=== PATIENT | female | born 1935 ===

== ENCOUNTER 2017-05-04 13:52 | Inpatient (IN) | payer MEDICARE, OTHER ==
[2017-05-04 13:53] VITALS: BMI 25.4
[2017-05-04 14:39] LABS: BASO # 0.1 K/uL (0.0-0.2); BASO % 0.7 % (0.0-2.0); EOS # 0.1 K/uL (0.0-0.7); EOS % 0.8 % (0.0-4.0); HEMATOCRIT 33.4 % (34.0-47.0); LYMPH # 1.3 K/uL (1.0-4.3); LYMPH % 8.7 % (20.0-40.0); MEAN CORPUSCULAR HEMOGLOBIN 29.6 pg (27.0-31.0); MEAN CORPUSCULAR HGB CONC 33.3 g/dL (33.0-37.0); MEAN PLATELET VOLUME 8.3 fL (7.2-11.7); MONO # 1.6 K/uL (0.0-0.8); MONO % 10.9 % (0.0-10.0); PLATELET COUNT 141 K/uL (130-400); RED CELL DISTRIBUTION WIDTH 14.5 % (11.5-14.5)
--- NOTE | 2017-05-04 14:39 | C.PDOC ---
History Of Present Illness 82 year old female, with a history of mitral valve replacement, long standing fecal and urinary incontinence, and mild dementia, was brought to the ED by daughter for evaluation of complaints patient is becoming progressively weaker, difficulty ambulating, and left leg swelling noted today. Patient has a past history of injury to the left ankle with occasional swelling, however, current swelling is more than usual. Patient's daughter states she has been drinking and eating fine but now must use a wheel chair to move around rooms in the home. Patient is poor historian but notes she "feels sick" but does not have specific complaints. She denies abdominal pain, respiratory distress, or fever. Time Seen by Provider: 05/04/17 14:07 Chief Complaint (Nursing): Weakness/Neurological Deficit History Per: Patient, Family (daughter ) History/Exam Limitations: clinical condition (mild dementia, patient poor historian ) Onset/Duration Of Symptoms: Hrs Current Symptoms Are (Timing): Still Present Fall Associated With With Symptoms: No Recent travel outside of the [place]: No Additional History Per: Prior Records Past Medical History Reviewed: Historical Data, Nursing Documentation, Vital Signs Vital Signs: Last Vital Signs Temp 98.2 F 05/04/17 14:04 Pulse 69 05/04/17 16:34 Resp 20 05/04/17 16:34 BP 130/65 05/04/17 16:34 Pulse Ox 95 05/04/17 16:38 - Medical History PMH: Atrial Fibrillation, COPD, HTN Surgical History: Pacemaker - [facility] Procedures REPLAC ANY TYPE PACE DEV W/ DUAL CHAMBER DEVICE (12/03/12) Family History: States: Unknown Family Hx - Social History Hx Alcohol Use: No Hx Substance Use: No Review Of Systems Constitutional: Positive for: Weakness (noted by daughter ), Other (difficulty ambulating ). Negative for: Fever Respiratory: Negative for: Cough, Shortness of Breath Gastrointestinal: Negative for: Abdominal Pain Skin: Positive for: Other (left leg swelling ) Physical Exam - Physical Exam Appears: Non-toxic, No Acute Distress, Other (Patient appears hydrated ) Skin: Warm, Dry, No Diaphoretic Head: Atraumatic, Normacephalic Eye(s): bilateral: Normal Inspection, PERRL, EOMI Oral Mucosa: Moist Neck: Supple Chest: No Deformity, No Tenderness Cardiovascular: Other (Pacemaker. Underlying Atrial fibrilation. ) Respiratory: Rales (Rales at the left base ), No Wheezing Gastrointestinal/Abdominal: Soft, No Tenderness, No Distention, No Guarding, No Rebound Extremity: Calf Tenderness (mild left calf tenderness ), Swelling (mild swelling of the left leg, from the knee down. ), Other (No color change or duskiness of extremities ) Pulses: Left Dorsalis Pedis: Normal, Right Dorsalis Pedis: Normal Neurological/Psych: No Oriented x3 (awake and alert ) ED Course And Treatment - Laboratory Results Result Diagrams: 05/04/17 14:33 05/04/17 14:33 Lab Interpretation: Abnormal (WBC 14.8 with left shift, Na 129, K 3.5, HCO3 20, D-dimer 1747, BNP 7940) ECG: Interpreted By Me ECG Rhythm: AV Paced ECG Interpretation: No Acute Changes O2 Sat by Pulse Oximetry: 95 (RA) Pulse Ox Interpretation: Normal - Radiology CXR: Interpreted by Me CXR Interpretation: Yes: Cardiomegaly, Other (vascular congestion) Progress Note: EKG, CXR, and blood work was ordered. Reevaluation Time: 15:48 Reassessment Condition: Unchanged - Physician Consult Information Time Consulting Physician Contacted: 15:49 Physician Contacted: Yair Benitez Outcome Of Conversation: Unable to contact Dr Benitez after multiple attempts. Case referred to Dr Leida Madsen telephone lineworker. He agrees to accept care. Disposition - Disposition Disposition: HOSPITALIZED Disposition Time: 18:19 Condition: STABLE - POA Present On Arrival: None - Clinical Impression Clinical Impression: CHF (congestive heart failure), Dementia, Left leg swelling - Scribe Statement The provider has reviewed the documentation as recorded by the Scribnorma Moyer All medical record entries made by the Scribnorma were at my direction and personally dictated by me. I have reviewed the chart and agree that the record accurately reflects my personal performance of the history, physical exam, medical decision making, and the department course for this patient. I have also personally directed, reviewed, and agree with the discharge instructions and disposition.
[2017-05-04 14:42] LABS: MEAN CELL VOLUME 89.1 fL (81.0-99.0); WHITE BLOOD COUNT 14.8 K/uL (4.8-10.8)
[2017-05-04 14:52] LABS: CHLORIDE 99 mmol/L (98-107)
[2017-05-04 14:53] LABS: POTASSIUM 3.5 mmol/L (3.6-5.2); SODIUM 129 mmol/L (132-148)
[2017-05-04 14:55] LABS: ALKALINE PHOSPHATASE 63 U/L (38-126); ALT/SGPT 39 U/L (9-52); AST/SGOT 30 U/L (14-36); BILIRUBIN,TOTAL 1.8 mg/dL (0.2-1.3); BLOOD UREA NITROGEN 11 mg/dL (7-17); CARBON DIOXIDE 20 mmol/L (22-30); GFR AFRICAN-AMERICAN > 60
[2017-05-04 14:56] LABS: CALCIUM 8.7 mg/dl (8.6-10.4); GLUCOSE,RANDOM 127 mg/dL (65-105)
[2017-05-04 15:17] LABS: NEUTROPHIL 78 % (50-75); TOTAL CELLS COUNTED 100
[2017-05-04 15:19] LABS: LARGE PLATELETS PRESENT
[2017-05-04 15:52] LABS: RBC URINE 3 /hpf (0-3); URINE BACTERIA RARE (<OCC); URINE BILIRUBIN NEGATIVE (NEGATIVE); URINE BLOOD 1+ (NEGATIVE); URINE COLOR Amber (YELLOW); URINE GLUCOSE (UA) NORMAL (Normal); URINE KETONE NEGATIVE (NEGATIVE); URINE LEUKOCYTE ESTERASE TRACE Leu/uL (Negative); URINE PROTEIN 1+ mg/dL (NEGATIVE); WBC URINE 5 /hpf (0-5)
--- NOTE | 2017-05-04 16:32 | RAD ---
PROCEDURE: CHEST RADIOGRAPH, 1 VIEW HISTORY: SOB COMPARISON: Comparison chest dated 05/27/2014 FINDINGS: LUNGS: Poor inspiration with low lung volumes and crowded bronchovascular markings and mild bibasilar atelectasis. Central pulmonary vasculature is also slightly increased which may be due to poor inspiration as well. . Clinical correlation recommended to exclude the possibility of underlying mild chronic compensated pulmonary edema/CHF PLEURA: No pneumothorax or pleural fluid seen. CARDIOVASCULAR: Sternotomy wires and by a Bela pacemaker unchanged. Heart appears mildly enlarged. OSSEOUS STRUCTURES: No significant abnormalities. VISUALIZED UPPER ABDOMEN: Normal. OTHER FINDINGS: None. IMPRESSION: Poor inspiration with low lung volumes and crowded bronchovascular markings and mild bibasilar atelectasis. Central pulmonary vasculature is also slightly increased which may be due to poor inspiration as well. . Clinical correlation recommended to exclude the possibility of underlying mild chronic compensated pulmonary edema/CHF
[2017-05-04 21:03] LABS: INR 2.8
[2017-05-05 08:49] LABS: BASO # 0.1 K/uL (0.0-0.2); BASO % 0.7 % (0.0-2.0); EOS # 0.5 K/uL (0.0-0.7); EOS % 3.4 % (0.0-4.0); HEMATOCRIT 33.4 % (34.0-47.0); LYMPH % 14.6 % (20.0-40.0); MEAN CELL VOLUME 88.5 fL (81.0-99.0); MEAN CORPUSCULAR HEMOGLOBIN 29.7 pg (27.0-31.0); MEAN CORPUSCULAR HGB CONC 33.5 g/dL (33.0-37.0); MEAN PLATELET VOLUME 8.3 fL (7.2-11.7); MONO # 1.7 K/uL (0.0-0.8); MONO % 12.3 % (0.0-10.0); RED CELL DISTRIBUTION WIDTH 14.2 % (11.5-14.5); WHITE BLOOD COUNT 13.4 K/uL (4.8-10.8)
[2017-05-05] MEDS: Metoprolol Succinate 50 mg XL Tab PO SCH (09:21)
[2017-05-05 09:29] LABS: CHLORIDE 99 mmol/L (98-107); SODIUM 130 mmol/L (132-148)
[2017-05-05 09:30] LABS: POTASSIUM 3.6 mmol/L (3.6-5.2)
[2017-05-05 09:31] LABS: AST/SGOT 35 U/L (14-36); BILIRUBIN,TOTAL 1.9 mg/dL (0.2-1.3); CARBON DIOXIDE 20 mmol/L (22-30); GFR AFRICAN-AMERICAN > 60
[2017-05-05 09:32] LABS: ALKALINE PHOSPHATASE 70 U/L (38-126); ALT/SGPT 38 U/L (9-52); BLOOD UREA NITROGEN 12 mg/dL (7-17); CALCIUM 8.5 mg/dl (8.6-10.4); GLUCOSE,RANDOM 101 mg/dL (65-105)
[2017-05-05] MEDS: Fluticasone Nasal 50 mcg/Spray NAS SCH (10:09)
--- NOTE | 2017-05-05 22:30 | CP.PCM.HP ---
History of Present Illness - History of Present Illness History of Present Illness: Chief complaint: Leg swelling weakness History of present illness: 82, female, history of mitral valve replacement, aortic valvular ring placement , atrial fibrillation, and anticoagulation with Coumadin, history of dementia, hypertension, allergic rhinitis. Family was concerned about her overall situation recently, she was getting more weak, more tired, increasing leg swelling, not eating well, slowly her condition is getting worse. Patient was not able to walk, and becoming more bedridden for the 2 days duration. Patient was walking to my office. She was also having minimal cough. She was not eating well, poor appetite motor, constipation present Patient did not have any chest pain. She is able to talk communicate with family members. Past medical history is notable Allergic to penicillin Past history: Nonsmoker nonalcoholic Family history: Noncontributory. Surgical history includes pacemaker, aortic valvular ring replacement, mitral valve replacement. Hypertension, diabetes noted in the family Medications reviewed from the chart Review of systems: 10 point system review was done, the cluster in his easy fatigability noted. Leg swelling present. Mild SOB noted. Anasarca noted On examination: Vital signs: Temperature 98.2 pulse is 69 respiration 20 blood pressure 130/65 saturation 93% . Chest good air entry bilaterally, expiratory wheezing are as not regular Nontender Abdomen Edema Generalized Bilaterally in the Legs Noted Labs Reviewed Elevated ProBNP Noted. Chest X-Ray Showing Evidence of Increasing Congestive CHANGES Assessment and Recommendation: 82 Female with History of Mitral Valve Replacement, Atrial fibrillation, pacemaker, an adequate ablation. Patient now admitted with a possible decompensated heart failure. Most likely fluid overload state. Hyponatremia. Likely secondary to anasarca. Patient's overall situation is somewhat critical. Fifi echocardiogram, cardiology evaluation, intravenous Lasix. Currently on Coumadin. Monitor the anticoagulation. DVT GI prophylaxis and will follow the patient Present on Admission - Present on Admission Any Indicators Present on Admission: No History of DVT/PE: No History of Uncontrolled Diabetes: No Urinary Catheter: No Decubitus Ulcer Present: No Past Patient History - Past Medical History & Family History Past Medical History?: Yes - Past Social History Smoking Status: Never Smoked - CARDIAC Hx Atrial Fibrillation: Yes Hx Hypertension: Yes Hx Pacemaker: Yes - PULMONARY Hx Chronic Obstructive Pulmonary Disease (COPD): Yes - NEUROLOGICAL HX Cerebrovascular Accident: Yes Hx Dementia: Yes Hx Transient Ischemic Attacks (TIA): Yes - HEENT Hx Glaucoma: Yes Other/Comment: post nasal drip - ENDOCRINE/METABOLIC Hx Diabetes Mellitus Type 2: Yes (borderline) - MUSCULOSKELETAL/RHEUMATOLOGICAL Hx Falls: No Hx Osteoarthritis: Yes (of lower back) - PSYCHIATRIC Hx Substance Use: No - SURGICAL HISTORY Other/Comment: mitral valve replacement -2005. annuloplasty ring-2005. pacemaker-2005. battery replacement for pacemaker-2012 - ANESTHESIA Hx Anesthesia: Yes Hx Anesthesia Reactions: No Hx Malignant Hyperthermia: No Has any member of the family had a problem w/ anesthesia?: No Meds Allergies/Adverse Reactions: Allergies Allergy/AdvReac Type Severity Reaction Status Date / Time Penicillins Allergy Verified 05/04/17 14:14 Results - Vital Signs Recent Vital Signs: Last Vital Signs Temp 97.5 F L 05/05/17 20:00 Pulse 68 05/05/17 20:00 Resp 18 05/05/17 20:00 BP 128/73 05/05/17 20:00 Pulse Ox 98 05/05/17 16:00 - Labs Result Diagrams: 05/05/17 08:39 05/05/17 08:39 Labs: Laboratory Results - last 24 hr 05/05/17 05/05/17 08:39 08:39 WBC 13.4 H RBC 3.77 L Hgb 11.2 Hct 33.4 L MCV 88.5 MCH 29.7 MCHC 33.5 RDW 14.2 Plt Count 156 MPV 8.3 Neut % (Auto) 69.0 Lymph % (Auto) 14.6 L [place] % (Auto) 12.3 H Eos % (Auto) 3.4 Baso % (Auto) 0.7 Neut # 9.3 H Lymph # 2.0 [place] # 1.7 H Eos # 0.5 Baso # 0.1 Sodium 130 L Potassium 3.6 Chloride 99 Carbon Dioxide 20 L Anion Gap 15 BUN 12 Creatinine 0.6 L Est GFR ( Amer) > 60 Est GFR (Non-Af Amer) > 60 Random Glucose 101 Calcium 8.5 L Total Bilirubin 1.9 H AST 35 ALT 38 Alkaline Phosphatase 70 Total Protein 7.0 Albumin 3.6 Globulin 3.5 Albumin/Globulin Ratio 1.0
--- NOTE | 2017-05-05 23:55 | CARD ---
APPROVED REPORT EXAM: Two-dimensional and M-mode echocardiogram with Doppler and color Doppler. Other Information Quality : Technically LimitedRhythm : NSR INDICATION Congestive Heart Failure Surgery/Intervention Status/Post Mitral Valve Replacement: Mechanical M-Mode DIMENSIONS RVDd1.76 (2.1-3.2cm)Left Atrium (MM)4.39 (2.5-4.0cm) IVSd0.91 (0.7-1.1cm)Aortic Root2.73 (2.2-3.7cm) LVDd3.84 (4.0-5.6cm)Aortic Cusp Exc.1.11 (1.5-2.0cm) PWd1.20 (0.7-1.1cm)FS (%) 15 % LVDs3.25 (2.0-3.8cm)LVEF (%)33 (>50%) Aortic Valve AoV Peak Rzxnngcw806.4cm/Jimmy Peak GR.11mmHgAI P 1/2 [id number] Mitral Valve MV E Wvidofti261.8cm/sMV E Peak Gr.12mmHgMV A Echnqbdi18.2cm/s MV E Mean Gr.5mmHgMV FOB436txN/A ratio2.2 MVA (PHT)2.06cm2 TDI E/Lateral E'0.0E/Medial E'0.0 Tricuspid Valve TR Peak Akpfydpi061ut/sTR Peak Gr.[id number] LEFT VENTRICLE The left ventricle is normal size. There is normal left ventricular wall thickness. Left ventricle systolic function is severely impaired. The Ejection Fraction is 30-35%. There is severe global hypokinesis of the left ventricle. The left ventricular diastolic function is normal. RIGHT VENTRICLE The right ventricle is normal size. There is normal right ventricular wall thickness. Systolic function is severely reduced. There is a pacemaker lead in the right ventricle. ATRIA The left atrium is mildly dilated. The right atrium size is normal. The interatrial septum is intact with no evidence for an atrial septal defect. AORTIC VALVE The aortic valve is normal in structure. There is mild to moderate aortic regurgitation. There is no aortic valvular stenosis. MITRAL VALVE Mitral annular calcification is moderate. There is moderate mitral valve stenosis in the prosthetic valve. Calculated mitral valve area is 2.06 cm2 with maximum pressure gradient of 12mmHg and mean pressure gradient of 5mmHg. Mitral regurgitation is mild. There is a mechanical mitral valve. TRICUSPID VALVE The tricuspid valve is normal in structure. There is mild to moderate tricuspid regurgitation. Right ventricular systolic pressure is estimated at 50-60 mmHg. There is moderate-severe pulmonary hypertension. PULMONIC VALVE The pulmonic valve is not well visualized. There is no pulmonic valvular regurgitation. GREAT VESSELS The aortic root is normal in size. PERICARDIAL EFFUSION There is no significant pericardial effusion. <Conclusion> Left ventricle systolic function is severely impaired. The Ejection Fraction is 30-35%. Diastolic dysfunction. There is mild to moderate aortic regurgitation. Mitral regurgitation is mild. There is moderate mitral valve stenosis in the prosthetic valve. Mitral regurgitation is mild. There is mild to moderate tricuspid regurgitation. There is moderate-severe pulmonary hypertension. There is no pulmonic valvular regurgitation.
[2017-05-06] MEDS: Metoprolol Succinate 50 mg XL Tab PO SCH (09:41)
[2017-05-06] MEDS: Fluticasone Nasal 50 mcg/Spray NAS SCH (09:41)
--- NOTE | 2017-05-06 17:43 | CP.PCM.PN ---
Subjective - Date & Time of Evaluation Date of Evaluation: 05/06/17 Time of Evaluation: 17:42 - Subjective Subjective: Patient's the leg swelling is improving markedly. She is feeling much better, breathing better. I spoke to the patient's daughter today. I also spoke to the registered nurse supervisor today. Vital signs reviewed Chest good air entry regular heart sound. Patient is comfortable. Added Seroquel 50 mg daily. Medications reviewed Coumadin 5 mg daily. INR is therapeutic. Will get cardiology evaluation. Patient echocardiogram showing evidence of ejection fraction 35%, most likely patient has a systolic heart failure at this time, valvular disease. We'll continue to monitor the patient. DVT GI prophylaxis. Follow-up the patient Objective - Vital Signs/Intake and Output Vital Signs (last 24 hours): Temp Pulse Resp BP Pulse Ox 97.6 F 73 19 149/61 97 05/06/17 04:00 05/06/17 15:54 05/06/17 15:54 05/06/17 15:54 05/06/17 15:54 Intake and Output: 05/06/17 05/06/17 06:59 18:59 Intake Total 50 Output Total 700 900 Balance -650 -900 - Medications Medications: Current Medications Aspirin (Aspirin Chewable) 81 mg PO DAILY [facility] Last Admin: 05/06/17 09:41 Dose: 81 mg Enalapril Maleate (Vasotec) 2.5 mg PO DAILY [facility] Last Admin: 05/06/17 09:37 Dose: 2.5 mg Fluticasone Propionate (Flonase) 2 spr DAYANA DAILY [facility] Last Admin: 05/06/17 09:41 Dose: 2 spr Furosemide (Lasix) 20 mg IVP DAILY [facility] Last Admin: 05/06/17 09:41 Dose: 20 mg Metoprolol Succinate (Toprol Xl) 50 mg PO DAILY [facility] Last Admin: 05/06/17 09:41 Dose: 50 mg Quetiapine Fumarate (Seroquel) 25 mg PO HS [facility] Last Admin: 05/05/17 23:15 Dose: 25 mg Timolol Maleate (Timoptic 0.5% Oph Soln) 0 drop OU HS [facility] Last Admin: 05/05/17 22:03 Dose: 1 drop Warfarin Sodium (Coumadin) 5 mg PO DAILY@1800 [facility] Stop: 05/09/17 18:00 Last Admin: 05/06/17 17:35 Dose: 5 mg - Labs Labs: 05/05/17 08:39 05/05/17 08:39 PT 22.4 SECONDS (9.7-12.2) H D 05/06/17 06:10 INR 2.0 D 05/06/17 06:10 APTT 34 SECONDS (21-34) 05/06/17 06:10
[2017-05-07 06:30] LABS: INR 2.1
[2017-05-07 06:34] LABS: BASO # 0.1 K/uL (0.0-0.2); BASO % 0.9 % (0.0-2.0); EOS # 0.4 K/uL (0.0-0.7); EOS % 4.8 % (0.0-4.0); HEMATOCRIT 35.6 % (34.0-47.0); LYMPH # 1.4 K/uL (1.0-4.3); LYMPH % 16.6 % (20.0-40.0); MEAN CELL VOLUME 88.9 fL (81.0-99.0); MEAN CORPUSCULAR HEMOGLOBIN 30.3 pg (27.0-31.0); MEAN CORPUSCULAR HGB CONC 34.1 g/dL (33.0-37.0); MEAN PLATELET VOLUME 8.9 fL (7.2-11.7); MONO # 1.2 K/uL (0.0-0.8); MONO % 13.9 % (0.0-10.0); NRBC % 0.1 % (0.0-2.0); RED CELL DISTRIBUTION WIDTH 14.5 % (11.5-14.5); WHITE BLOOD COUNT 8.7 K/uL (4.8-10.8)
[2017-05-07 06:46] LABS: CHLORIDE 100 mmol/L (98-107); POTASSIUM 3.4 mmol/L (3.6-5.2); SODIUM 136 mmol/L (132-148)
[2017-05-07 06:48] LABS: AST/SGOT 55 U/L (14-36); BILIRUBIN,TOTAL 1.2 mg/dL (0.2-1.3); CARBON DIOXIDE 25 mmol/L (22-30); GFR AFRICAN-AMERICAN > 60
[2017-05-07 06:49] LABS: ALB/GLOB RATIO 0.8 (1.0-2.1); ALKALINE PHOSPHATASE 77 U/L (38-126); ALT/SGPT 68 U/L (9-52); BLOOD UREA NITROGEN 16 mg/dL (7-17); CALCIUM 8.9 mg/dl (8.6-10.4); GLUCOSE,RANDOM 96 mg/dL (65-105); TOTAL PROTEIN 7.7 g/dL (6.3-8.3)
[2017-05-07] MEDS: Metoprolol Succinate 50 mg XL Tab PO SCH ×2 (09:14→15:34)
[2017-05-07] MEDS: Fluticasone Nasal 50 mcg/Spray NAS SCH (09:16)
--- NOTE | 2017-05-08 01:45 | CP.PCM.PN ---
Subjective - Date & Time of Evaluation Date of Evaluation: 05/07/17 Time of Evaluation: 20:00 - Subjective Subjective: patient is stable. Improving. Leg swelling better. Spoke to the family. Awaiting for cardiology clearance. She will be transferred to [facility] Objective - Vital Signs/Intake and Output Vital Signs (last 24 hours): Temp Pulse Resp BP Pulse Ox 97.4 F L 87 20 181/95 H 97 05/07/17 17:32 05/07/17 17:32 05/07/17 17:32 05/07/17 17:32 05/07/17 17:32 Intake and Output: 05/07/17 05/08/17 18:59 06:59 Intake Total 240 Balance 240 - Medications Medications: Current Medications Aspirin (Aspirin Chewable) 81 mg PO DAILY [facility] Last Admin: 05/07/17 09:12 Dose: 81 mg Enalapril Maleate (Vasotec) 5 mg PO DAILY [facility] Fluticasone Propionate (Flonase) 2 spr DAYANA DAILY [facility] Last Admin: 05/07/17 09:16 Dose: 2 spr Furosemide (Lasix) 40 mg PO DAILY [facility] Metoprolol Succinate (Toprol Xl) 50 mg PO DAILY [facility] Last Admin: 05/07/17 15:34 Dose: 50 mg Quetiapine Fumarate (Seroquel) 25 mg PO HS [facility] Last Admin: 05/07/17 22:39 Dose: 25 mg Timolol [facility] 0 drop OU HS [facility] Last Admin: 05/07/17 22:39 Dose: 1 drop Warfarin Sodium (Coumadin) 5 mg PO DAILY@1800 [facility] Stop: 05/09/17 18:00 Last Admin: 05/07/17 17:07 Dose: 5 mg - Labs Labs: 05/07/17 06:20 05/07/17 06:17 PT 23.6 SECONDS (9.7-12.2) H 05/07/17 06:16 INR 2.1 05/07/17 06:16 APTT 29 SECONDS (21-34) D 05/07/17 06:16
[2017-05-08 07:33] LABS: BASO % 0.6 % (0.0-2.0); EOS # 0.3 K/uL (0.0-0.7); EOS % 3.5 % (0.0-4.0); HEMATOCRIT 38.3 % (34.0-47.0); LYMPH # 1.4 K/uL (1.0-4.3); LYMPH % 17.7 % (20.0-40.0); MEAN CELL VOLUME 87.9 fL (81.0-99.0); MEAN CORPUSCULAR HEMOGLOBIN 30.3 pg (27.0-31.0); MEAN CORPUSCULAR HGB CONC 34.4 g/dL (33.0-37.0); MEAN PLATELET VOLUME 8.8 fL (7.2-11.7); MONO # 1.1 K/uL (0.0-0.8); MONO % 13.8 % (0.0-10.0); WHITE BLOOD COUNT 7.6 K/uL (4.8-10.8)
[2017-05-08 07:41] LABS: INR 2.1
[2017-05-08 08:33] LABS: CHLORIDE 101 mmol/L (98-107); SODIUM 135 mmol/L (132-148)
[2017-05-08 08:34] LABS: POTASSIUM 3.5 mmol/L (3.6-5.2)
[2017-05-08 08:36] LABS: ALB/GLOB RATIO 0.9 (1.0-2.1); ALKALINE PHOSPHATASE 89 U/L (38-126); ALT/SGPT 56 U/L (9-52); AST/SGOT 48 U/L (14-36); BILIRUBIN,TOTAL 1.2 mg/dL (0.2-1.3); BLOOD UREA NITROGEN 14 mg/dL (7-17); CARBON DIOXIDE 23 mmol/L (22-30); GFR AFRICAN-AMERICAN > 60
[2017-05-08 08:37] LABS: CALCIUM 8.8 mg/dl (8.6-10.4); GLUCOSE,RANDOM 107 mg/dL (65-105)
--- NOTE | 2017-05-08 08:52 | PCM.HF ---
Heart Failure Core Measure - Heart Failure Ejection Fraction: Less Than 40 % MARCOS Inhibitor Prescribed: Yes Beta-Beulah Prescribed: Metoprolol Succinate Angiotensin II Receptor Beulah Prescribed: No Contraindication/Reason for not providing: on marcos AnticoagulationTherapy for Atrial Fibrillation/Atrialflutter: Yes Aldosterone Antagonist Prescribed: No Contraindication/Reason for not providing: NOT REC BY CARDIO; + PACEMAKER Hydralazine Nitrate Prescribed: No Contraindication/Reason for not providing: NOT REC BY CARDIO; + PACEMAKER Implantable Cardioverter Defibrillator Therapy: Yes Contraindication/Reason for not providing: + PACEMAKER Cardiac Resynchronization Therapy Prescribed: No Contraindication/Reason for not providing: HAS PACEMAKER - Follow up Will be discharged to: [facility]) Follow Up Date (must be within 7 days from discharge): 05/12/17 Follow Up Time: 09:00
[2017-05-08] MEDS: Fluticasone Nasal 50 mcg/Spray NAS SCH (09:57)
[2017-05-08] MEDS: Metoprolol Succinate 50 mg XL Tab PO SCH (09:58)
[2017-05-09 01:26] VITALS: O2SAT 97
--- NOTE | 2017-05-09 02:54 | CON ---
DATE: CARDIOLOGY CONSULTATION HISTORY OF PRESENT ILLNESS: An 82-year-old female, was brought in with a history of congestive heart failure. Chart is reviewed. The patient is known to me from previous admissions and office visits. The patient apparently has a mitral valve replacement done more than 10 years ago, bioprosthetic valve, had a tricuspid valve ring placed in. She also has a chronic atrial fibrillation. She was in her usual state of health, being maintained on diuretics, Vasotec 5 mg and metoprolol. She also has a DDD pacemaker, which is being followed up at [facility]. PERSONAL HISTORY: Does not smoke, does not drink. ALLERGIES: ALLERGIC TO PENICILLIN. PAST MEDICAL HISTORY: History of pacemaker, tricuspid valve ring, and a mitral valve replacement, bioprosthetic. FAMILY HISTORY: Positive for hypertension. REVIEW OF SYSTEMS: Generalized weakness is noted. Walks on with a walker, but dyspnea on exertion, increasing ankle edema. Sleeps on 2 to 3 pillows. No abdominal pain. No hematemesis. No melena. No visual disturbances. History of arthritis involving the knees. History of depression. PHYSICAL EXAMINATION: GENERAL: Shows elderly female, who is conscious, alert, chronically sick looking and somewhat cachectic, but in no acute distress. VITAL SIGNS: She is 5.4 feet, weighs 131 pounds, blood pressure is 130/60; heart rate of 70 and regular and paced rhythm on the EKG and telemetry, and respiratory rate of 20. HEENT: Head is normocephalic. EYES: No pallor, no icterus. NECK: Supple. MOUTH: Absence of all teeth. LUNGS: Decreased air entry at the bases. CARDIAC: Heart sounds are distant, but no definite gallops, 2 to 3/6 midsystolic murmur in mitral area. ABDOMEN: Soft and nontender. EXTREMITIES: No cyanosis, clubbing, or edema. Distal pulses are 1+. LABORATORY DATA: Her hemoglobin is 13.2, potassium is 3.5, BUN is 14, creatinine is 0.6. INR is 2.1. Chest x-ray had shown congestive heart failure. Echocardiogram done repeat showed LVEF about 35%. ASSESSMENT: An 82-year-old female with a history of bioprosthetic mitral valve in the past, history of tricuspid valve ring annuloplasty, moderate degree of pulmonary hypertension with pulmonary artery systolic pressure of 50 mmHg and left ventricular systolic dysfunction, status post permanent pacemaker. PLAN: At this point just to continue with the diuretics and maintain INR around 2 to 2.5. The patient is already on Vasotec and may change from metoprolol to Coreg. She does not need any invasive cardiac workup based on her generalized condition and not a candidate for repeat intervention. I thank you kindly and we will follow as needed. Bull Bishop MD
[2017-05-09 08:52] VITALS: PULSE 102; RESP 18; TEMP 98.4
[2017-05-09 10:28] VITALS: BP 157/85
[2017-05-09] MEDS: Fluticasone Nasal 50 mcg/Spray NAS SCH (10:28)
--- NOTE | 2017-05-09 12:29 | CP.PCM.PN ---
Subjective - Date & Time of Evaluation Date of Evaluation: 05/09/17 Time of Evaluation: 12:27 - Subjective Subjective: feels ok.laying flat in bed. Objective - Vital Signs/Intake and Output Vital Signs (last 24 hours): Temp Pulse Resp BP Pulse Ox 98.4 F 102 H 18 157/85 H 97 05/09/17 08:50 05/09/17 08:50 05/09/17 08:50 05/09/17 10:28 05/09/17 08:50 Intake and Output: 05/09/17 05/09/17 06:59 18:59 Intake Total 240 Output Total 1 Balance 239 - Medications Medications: Current Medications Aspirin (Aspirin Chewable) 81 mg PO DAILY [facility] Last Admin: 05/09/17 10:27 Dose: 81 mg Carvedilol (Coreg) 6.25 mg PO BID [facility] Last Admin: 05/09/17 10:27 Dose: 6.25 mg Enalapril Maleate (Vasotec) 5 mg PO DAILY [facility] Last Admin: 05/09/17 10:27 Dose: 5 mg Fluticasone Propionate (Flonase) 2 spr DAYANA DAILY [facility] Last Admin: 05/09/17 10:28 Dose: 2 spr Furosemide (Lasix) 40 mg PO DAILY [facility] Last Admin: 05/09/17 10:28 Dose: 40 mg Quetiapine Fumarate (Seroquel) 25 mg PO HS [facility] Last Admin: 05/08/17 22:39 Dose: 25 mg Timolol Maleate (Timoptic 0.5% Ophth Soln) 0 drop OU HS [facility] Last Admin: 05/08/17 22:38 Dose: 1 drop Warfarin Sodium (Coumadin) 5 mg PO DAILY@1800 [facility] Stop: 05/09/17 18:00 Last Admin: 05/08/17 17:18 Dose: 5 mg - Labs Labs: 05/08/17 07:16 05/08/17 07:16 PT 24.2 SECONDS (9.7-12.2) H 05/08/17 07:16 INR 2.1 05/08/17 07:16 APTT 35 SECONDS (21-34) H D 05/08/17 07:16 - Constitutional Appears: No Acute Distress, Chronically Ill - Head Exam Head Exam: NORMOCEPHALIC - ENT Exam ENT Exam: Mucous Membranes Moist - Respiratory Exam Respiratory Exam: Clear to Ausculation Bilateral - Cardiovascular Exam Cardiovascular Exam: Irregular Rhythm, Murmur - GI/Abdominal Exam GI & Abdominal Exam: Soft - Extremities Exam Extremities Exam: absent: Pedal Edema - Neurological Exam Neurological Exam: Alert Assessment and Plan - Assessment and Plan (Free Text) Assessment: chf is resolved. on coreg.ct lasix,vasotec.
--- NOTE | 2017-05-09 13:49 | CP.PCM.PN ---
Subjective - Date & Time of Evaluation Date of Evaluation: 05/09/17 Time of Evaluation: 13:46 - Subjective Subjective: PT SEEN; CLEARED FOR D/C. HAS NO CURRENT COMPLAINTS. CLEARED BY DR. Heather REGALADO; PERFORATOR OPERATOR DISCUSSED WITH HIM AND PT TO CONTINUE SAME MEDICATIONS FOR NOW INCLUDING METOPROLOL. NO FURTHER CARDIAC WORKUP PER FABRICIO DEAL. PT TO GO TO [facility] AND WILL BE UNDER THE SERVICE OF DR. LOYA AT [facility]. PT INFO PROVIDED TO . NO FURTHER ORDERS. SW TO ARRANGE TRANSPORTATION TO [facility]. Objective - Vital Signs/Intake and Output Vital Signs (last 24 hours): Temp Pulse Resp BP Pulse Ox 98.4 F 102 H 18 157/85 H 97 05/09/17 08:50 05/09/17 08:50 05/09/17 08:50 05/09/17 10:28 05/09/17 08:50 Intake and Output: 05/09/17 05/09/17 06:59 18:59 Intake Total 240 Output Total 1 Balance 239 - Medications Medications: Current Medications Aspirin (Aspirin Chewable) 81 mg PO DAILY [facility] Last Admin: 05/09/17 10:27 Dose: 81 mg Carvedilol (Coreg) 6.25 mg PO BID [facility] Last Admin: 05/09/17 10:27 Dose: 6.25 mg Enalapril Maleate (Vasotec) 5 mg PO DAILY [facility] Last Admin: 05/09/17 10:27 Dose: 5 mg Fluticasone Propionate (Flonase) 2 spr DAYANA DAILY [facility] Last Admin: 05/09/17 10:28 Dose: 2 spr Furosemide (Lasix) 40 mg PO DAILY [facility] Last Admin: 05/09/17 10:28 Dose: 40 mg Quetiapine Fumarate (Seroquel) 25 mg PO HS [facility] Last Admin: 05/08/17 22:39 Dose: 25 mg Timolol Maleate (Timoptic 0.5% Oph Soln) 0 drop OU HS [facility] Last Admin: 05/08/17 22:38 Dose: 1 drop Warfarin Sodium (Coumadin) 5 mg PO DAILY@1800 [facility] Stop: 05/09/17 18:00 Last Admin: 05/08/17 17:18 Dose: 5 mg - Labs Labs: 05/08/17 07:16 05/08/17 07:16 PT 24.2 SECONDS (9.7-12.2) H 05/08/17 07:16 INR 2.1 05/08/17 07:16 APTT 35 SECONDS (21-34) H D 05/08/17 07:16
--- NOTE | 2017-05-09 21:56 | CARD ---
APPROVED REPORT EKG Measurement Heart [id number] RI 196P [id number] <Conclusion> AV dual-paced rhythm Abnormal ECG
--- NOTE | 2017-06-04 22:27 | CP.PCM.DIS ---
Provider - Provider Date of Admission: 05/04/17 18:20 Attending physician: Yair Benitez MD Time Spent in preparation of Discharge (in minutes): 45 Hospital Course - Lab Results Lab Results: Micro Results 05/07/17 19:00 Nose MRSA Culture - Final MRSA NOT DETECTED 05/04/17 22:19 Nose MRSA Culture (Admit) - Final MRSA NOT DETECTED 05/04/17 15:48 Urine Urine Culture - Final No Growth (<1,000 CFU/ML) Most Recent Lab Values WBC 7.6 K/uL (4.8-10.8) 05/08/17 07:16 RBC 4.36 Mil/uL (3.80-5.20) 05/08/17 07:16 Hgb 13.2 g/dL (11.0-16.0) 05/08/17 07:16 Hct 38.3 % (34.0-47.0) 05/08/17 07:16 MCV 87.9 fL (81.0-99.0) 05/08/17 07:16 MCH 30.3 pg (27.0-31.0) 05/08/17 07:16 MCHC 34.4 g/dL (33.0-37.0) 05/08/17 07:16 RDW 14.0 % (11.5-14.5) 05/08/17 07:16 Plt Count 210 K/uL (130-400) 05/08/17 07:16 MPV 8.8 fL (7.2-11.7) 05/08/17 07:16 Neut % (Auto) 64.4 % (50.0-75.0) 05/08/17 07:16 Lymph % (Auto) 17.7 % (20.0-40.0) L 05/08/17 07:16 Lassen % (Auto) 13.8 % (0.0-10.0) H 05/08/17 07:16 Eos % (Auto) 3.5 % (0.0-4.0) 05/08/17 07:16 Baso % (Auto) 0.6 % (0.0-2.0) 05/08/17 07:16 Neut # 4.9 K/uL (1.8-7.0) 05/08/17 07:16 Lymph # 1.4 K/uL (1.0-4.3) 05/08/17 07:16 Lassen # 1.1 K/uL (0.0-0.8) H 05/08/17 07:16 Eos # 0.3 K/uL (0.0-0.7) 05/08/17 07:16 Baso # 0.0 K/uL (0.0-0.2) 05/08/17 07:16 Neutrophils % (Manual) 78 % (50-75) H 05/04/17 14:33 Band Neutrophils % 1 % (0-2) 05/04/17 14:33 Lymphocytes % (Manual) 10 % (20-40) L 05/04/17 14:33 Monocytes % (Manual) 11 % (0-10) H 05/04/17 14:33 Platelet Estimate Normal (NORMAL) 05/04/17 14:33 Large Platelets Present 05/04/17 14:33 Polychromasia Slight 05/04/17 14:33 Hypochromasia (manual) Slight 05/04/17 14:33 Anisocytosis (manual) Slight 05/04/17 14:33 PT 24.2 SECONDS (9.7-12.2) H 05/08/17 07:16 INR 2.1 05/08/17 07:16 APTT 35 SECONDS (21-34) H D 05/08/17 07:16 D-Dimer, Quantitative 1747 ng/mlDDU (0-243) H 05/04/17 14:33 Sodium 135 mmol/L (132-148) 05/08/17 07:16 Potassium 3.5 mmol/L (3.6-5.2) L 05/08/17 07:16 Chloride 101 mmol/L (98-107) 05/08/17 07:16 Carbon Dioxide 23 mmol/L (22-30) 05/08/17 07:16 Anion Gap 14 (10-20) 05/08/17 07:16 BUN 14 mg/dL (7-17) 05/08/17 07:16 Creatinine 0.6 mg/dL (0.7-1.2) L 05/08/17 07:16 Est GFR ( Amer) > 60 05/08/17 07:16 Est GFR (Non-Af Amer) > 60 05/08/17 07:16 Random Glucose 107 mg/dL (65-105) H 05/08/17 07:16 Calcium 8.8 mg/dl (8.6-10.4) 05/08/17 07:16 Total Bilirubin 1.2 mg/dL (0.2-1.3) 05/08/17 07:16 AST 48 U/L (14-36) H 05/08/17 07:16 ALT 56 U/L (9-52) H 05/08/17 07:16 Alkaline Phosphatase 89 U/L (38-126) 05/08/17 07:16 Troponin I 0.1160 ng/mL (0.00-0.120) 05/04/17 14:33 NT-Pro-B Natriuret Pep 7940 pg/mL (0-900) H 05/04/17 14:33 Total Protein 7.0 g/dL (6.3-8.3) 05/08/17 07:16 Albumin 3.4 g/dL (3.5-5.0) L 05/08/17 07:16 Globulin 3.6 gm/dL (2.2-3.9) 05/08/17 07:16 Albumin/Globulin Ratio 0.9 (1.0-2.1) L 05/08/17 07:16 Urine Color Heidi (YELLOW) 05/04/17 15:37 Urine Clarity Clear (Clear) 05/04/17 15:37 Urine pH 5.0 (5.0-8.0) 05/04/17 15:37 Ur Specific Pender 1.020 (1.003-1.030) 05/04/17 15:37 Urine Protein 1+ mg/dL (NEGATIVE) H 05/04/17 15:37 Urine Glucose (UA) Normal mg/dL (Normal) 05/04/17 15:37 Urine Ketones Negative mg/dL (NEGATIVE) 05/04/17 15:37 Urine Blood 1+ (NEGATIVE) H 05/04/17 15:37 Urine Nitrate Negative (NEGATIVE) 05/04/17 15:37 Urine Bilirubin Negative (NEGATIVE) 05/04/17 15:37 Urine Urobilinogen 4.0 mg/dL (0.2-1.0) H 05/04/17 15:37 Ur Leukocyte Esterase Trace Vivi/uL (Negative) 05/04/17 15:37 Urine WBC (Auto) 5 /hpf (0-5) 05/04/17 15:37 Urine RBC (Auto) 3 /hpf (0-3) 05/04/17 15:37 Ur Squamous Epith Cells < 1 /hpf (0-5) 05/04/17 15:37 Urine Bacteria Rare (<OCC) 05/04/17 15:37 - Hospital Course Hospital Course: Chief complaint: Leg swelling weakness History of present illness: 82, female, history of mitral valve replacement, aortic valvular ring placement , atrial fibrillation, and anticoagulation with Coumadin, history of dementia, hypertension, allergic rhinitis. Family was concerned about her overall situation recently, she was getting more weak, more tired, increasing leg swelling, not eating well, slowly her condition is getting worse. Patient was not able to walk, and becoming more bedridden for the 2 days duration. Patient was walking to my office in the past one month ago prior to recent hospitalization. She was also having minimal cough. She was not eating well, poor appetite motor, constipation present Patient did not have any chest pain. She is able to talk communicate with family members. Past medical history is notable Allergic to penicillin Past history: Nonsmoker nonalcoholic Family history: Noncontributory. Surgical history includes pacemaker, aortic valvular ring replacement, mitral valve replacement. Hypertension, diabetes noted in the family Medications reviewed from the chart Review of systems: 10 point system review was done, the cluster in his easy fatigability noted. Leg swelling present. Mild SOB noted. Anasarca noted On examination: Vital signs: Temperature 98.2 pulse is 69 respiration 20 blood pressure 130/65 saturation 93% . Chest good air entry bilaterally, expiratory wheezing are as not regular Nontender Abdomen Edema Generalized Bilaterally in the Legs Noted Labs Reviewed Elevated ProBNP Noted. Chest X-Ray Showing Evidence of Increasing Congestive CHANGES Assessment and Recommendation: 82 Female with History of Mitral Valve Replacement, Atrial fibrillation, pacemaker, an adequate ablation. Patient now admitted with a possible decompensated heart failure. Most likely fluid overload state. Hyponatremia. Likely secondary to anasarca. Patient's overall situation is somewhat critical. Fifi echocardiogram, cardiology evaluation, intravenous Lasix. Currently on Coumadin. Monitor the anticoagulation. DVT GI prophylaxis and will follow the patient Course in the hospital. Patient was closely monitored. Intravenous Lasix given. Leg swelling slowly improved. Patient also started feeling much better, eating well. Underwent echocardiogram showing evidence of ejection fraction 35%. Minimal systolic ejection fraction down. To be improving. She is on Coumadin at this time. INR therapeutic. Will continue the current treatment. Patient returns to subacute rehabilitation. She will followed up by rehabilitation, Doctor Discharge Exam - Head Exam Head Exam: NORMOCEPHALIC Discharge Plan - Follow Up Plan Condition: STABLE Disposition: TRANSF TO SNF Instructions: Warfarin (By mouth), Heart Failure (DC), Atrial Fibrillation (DC) , Heart Healthy Diet (DC), Dementia (GEN), Hypertension (DC) Additional Instructions: PLACE UNDER THE SERVICE OF DR. Leida GAN WHILE AT [facility][1]--CALL UPON ARRIVAL FOR ADMISSION ORDERS AND BED ASSIGNMENT. PHYSICAL THERAPY TOLERATED. FALL PRECAUTIONS PER FACILITY PROTOCOL. CONTINUE ALL MEDICATIONS ACCORDING TO THE MED REC FORM. FURTHER ORDERS OR QUESTIONS PLEASE CONTACT THE ATTENDING MD. Referrals: Yair Benitez MD [Staff Provider] - Sammi Gan MD [Staff Provider] - Bull Bishop MD [Staff Provider] -
== END 2017-05-09 16:54 | DRG 292 ==
LOC: C.ER 13:52 → C.9E 18:20 → C.9I 21:43 → C.6T 05-07 17:29
PROVIDERS: ADMIT Internal Medicine; ATTEND Internal Medicine
DX: I11.0 Hypertensive heart disease with heart failure (principal); E87.1 Hypo-osmolality and hyponatremia; F03.90 Unspecified dementia, unspecified severity, without behavioral disturbance, psychotic disturbance, mood disturbance, and anxiety; I48.2 Chronic atrial fibrillation; E11.9 Type 2 diabetes mellitus without complications; H40.9 Unspecified glaucoma; I27.20 Pulmonary hypertension, unspecified; J44.9 Chronic obstructive pulmonary disease, unspecified; Z95.0 Presence of cardiac pacemaker; Z95.3 Presence of xenogenic heart valve; Z88.0 Allergy status to penicillin; I50.22 Chronic systolic (congestive) heart failure